=== PATIENT | male | born 1975 | race Caucasian/White ===

== ENCOUNTER → 2018-06-03 | Outpatient (CLI) | payer OTHER | LOC: M.MRI | DX: M50.223 Other cervical disc displacement at C6-C7 level (principal); M48.02 Spinal stenosis, cervical region ==

== ENCOUNTER → 2020-02-13 | Outpatient (CLI) | payer OTHER | LOC: M.MRI 06:49 | PROVIDERS: ATTEND Family Medicine | DX: S83.242A Other tear of medial meniscus, current injury, left knee, initial encounter (principal); S83.522A Sprain of posterior cruciate ligament of left knee, initial encounter; S89.92XA Unspecified injury of left lower leg, initial encounter; M25.462 Effusion, left knee; M22.42 Chondromalacia patellae, left knee; X58.XXXA Exposure to other specified factors, initial encounter; Y93.89 Activity, other specified; Y92.89 Other specified places as the place of occurrence of the external cause; Y99.8 Other external cause status ==

== ENCOUNTER → 2020-03-08 | Outpatient (CLI) | payer OTHER | LOC: M.LAB 09:27 | PROVIDERS: ATTEND Orthopaedic Surgery | DX: Z01.812 Encounter for preprocedural laboratory examination (principal); Z20.828 Contact with and (suspected) exposure to other viral communicable diseases; M22.42 Chondromalacia patellae, left knee; M23.322 Other meniscus derangements, posterior horn of medial meniscus, left knee ==